=== PATIENT | female | born 1970 | race Caucasian/White ===

== ENCOUNTER 2017-04-13 09:55 | Emergency (ER) | payer SELFPAY ==
[2017-04-13 10:05] VITALS: TEMP 98.1
[2017-04-13 10:31] LABS: % IMMATURE GRANULYOCYTES 0.3 % (0.0-1.1); ABSOLUTE IMMATURE GRANULOCYTES 0.03 10^3/uL (0.00-0.10); ADD DIFF? NO; ADD MORPH? NO; ADD SCAN? NO; ATYPICAL LYMPHOCYTE FLAG 10 (0-99); FRAGMENT RBC FLAG 20 (0-99); HEMATOCRIT 39.4 % (38.0-47.0); LEFT SHIFT FLG 0 (0-99); LIPEMIA HEMOLYSIS FLAG 80 (0-99); MEAN CELL HEMOGLOBIN 27.1 pg (27.9-34.1); MEAN CELL VOLUME 82.1 fL (81.5-99.8); MEAN PLATELET VOLUME 10.7 fL (8.7-11.7); PLATELET CLUMPS FLAG 20 (0-99); PLATELET COUNT 361 10^3/uL (150-400); RED CELL DISTRIBUTION WIDTH 19.5 % (11.5-15.2)
[2017-04-13 10:41] VITALS: BP 106/68; PULSE 69; RESP 18; O2SAT 96
[2017-04-13 10:47] LABS: ANION GAP 15 mEq/L (8-16); CALCIUM 9.5 mg/dL (8.5-10.4); CARBON DIOXIDE 20 mEq/l (22-31); CHLORIDE 109 mEq/L (97-110); CREATININE 0.8 mg/dL (0.6-1.0); GLOMERULAR FILTRATION RATE > 60; GLUCOSE 89 mg/dL (70-100); POTASSIUM 4.5 mEq/L (3.5-5.2); SODIUM 144 mEq/L (134-144)
--- NOTE | 2017-04-13 11:13 | EDPHY ---
H & P Time Seen by Provider: 04/13/17 10:34 HPI/ROS: CHIEF COMPLAINT: Visual symptoms and peripheral numbness HISTORY OF PRESENT ILLNESS: Patient has a long history of migraine headaches. She often will get some visual auras or peripheral neurologic symptoms. She did have a negative head CT and [place] 1 month ago. She arrived from [place] on Tuesday and went for a hike that day and the next day and felt fine. On Tuesday she felt a strong migraine which was right-sided, typical for her associated with visual symptoms like she had today and nausea. She took her [place] migraine medication which includes indomethacin, caffeine and prochlorperazine (from the label on the box which she has with her) and felt better. She had a subjective fever yesterday and then today at 9:00 a.m. for about 45 min she had "waves "in her vision like her migraine aura, difficulty reading her phone, and numbness in both hands the left greater than the right. She also had some tingling in her cheek and her mouth and all lasted about 45 min and now she feels that all of her symptoms are completely gone. REVIEW OF SYSTEMS: Eye: Visual or as above ENT: no sore throat or earache Cardiac: no chest pain or syncope Pulmonary: no cough or SOB Abdomen: no vomiting, diarrhea, abdominal pain Musculoskeletal: no back pain or neck pain Skin: no rash Neuro: HPI. She did not have vertigo or loss of balance or ataxia. No weakness or numbness in arms or legs. Constitutional: no fever : no urinary symptoms A comprehensive 10 point review of systems is otherwise negative aside from elements mentioned in the history of present illness. PAST MEDICAL HISTORY: Migraine headaches and anemia Social history: Lives in [facility] General Appearance: Alert and conversant, cooperative. Eyes: No scleral icterus. Extraocular motion intact. ENT, Mouth: Normal mucous membranes. Normal tympanic membranes. No facial swelling. Respiratory: Normal respiratory effort, breath sounds equal, lungs are clear to auscultation. Cardiovascular: Regular rate and rhythm. No murmurs. Gastrointestinal: Abdomen is soft and non tender. Neurological: Alert and oriented x3. Normally conversant. Face symmetric, normal movement and sensation in all extremities. Normal [id number] and no pronator drift. Forehead wrinkle symmetrically. She has normal sensation to the soft and sharp as well as cold and hot and light touch to both sides of her face and both arms. Patellar reflexes 1+ bilateral, toes downgoing, no clonus. Fluent speech. Ambulatory. Skin: Warm and dry, no rashes. Musculoskeletal: Normal range of motion of the neck. Psychiatric: Not agitated. Emergency Department course/MDM: Patient presents with symptoms this morning which have resolved completely. She is not anemic and her electrolytes are normal. She was worried about high altitude cerebral edema which I think is unlikely given the fact that she is currently sleeping at [facility]. I do not think it is likely she had a stroke, she has normal neurologic examination now. I think the most likely and most reasonable explanation is that she had atypical migraine symptoms which have now resolved. I also considered other diagnoses including but not limited to [employer] infection, Catalan's palsy, peripheral neuropathy, seizure or [employer] mass or bleed, vascular dissection, ischemic stroke, all of which I think are unlikely. Smoking Status: Never smoked Constitutional: Initial Vital Signs Temperature (C) 36.7 C 04/13/17 10:01 Heart Rate 79 04/13/17 10:01 Respiratory Rate 16 04/13/17 10:01 Blood Pressure 119/81 H 04/13/17 10:01 O2 Sat (%) 97 04/13/17 10:01 O2 Delivery Mode Room Air Allergies/Adverse Reactions: No Known Allergies Allergy (Unverified 04/13/17 09:58) Home Medications: Medication Instructions Recorded Indomethacin 04/13/17 Iron 04/13/17 Medical Decision Making - Data Points Laboratory Results: Laboratory Results 04/13/17 10:20 04/13/17 10:20 04/13/17 04/13/17 10:20 10:20 WBC 8.95 10^3/uL 10^3/uL (3.80-9.50) RBC 4.80 10^6/uL 10^6/uL (4.18-5.33) Hgb 13.0 g/dL g/dL (12.6-16.3) Hct 39.4 % % (38.0-47.0) MCV 82.1 fL fL (81.5-99.8) MCH 27.1 pg L pg (27.9-34.1) MCHC 33.0 g/dL g/dL (32.4-36.7) RDW 19.5 % H % (11.5-15.2) Plt Count 361 10^3/uL 10^3/uL (150-400) MPV 10.7 fL fL (8.7-11.7) Neut % (Auto) 72.9 % % (39.3-74.2) Lymph % (Auto) 18.9 % % (15.0-45.0) [place] % (Auto) 6.3 % % (4.5-13.0) Eos % (Auto) 0.6 % % (0.6-7.6) Baso % (Auto) 1.0 % % (0.3-1.7) Nucleat RBC Rel Count 0.0 % % (0.0-0.2) Absolute Neuts (auto) 6.53 10^3/uL H 10^3/uL (1.70-6.50) Absolute Lymphs (auto) 1.69 10^3/uL 10^3/uL (1.00-3.00) Absolute Monos (auto) 0.56 10^3/uL 10^3/uL (0.30-0.80) Absolute Eos (auto) 0.05 10^3/uL 10^3/uL (0.03-0.40) Absolute Basos (auto) 0.09 10^3/uL 10^3/uL (0.02-0.10) Absolute Nucleated RBC 0.00 10^3/uL 10^3/uL (0-0.01) Immature Gran % 0.3 % % (0.0-1.1) Immature Gran # 0.03 10^3/uL 10^3/uL (0.00-0.10) Sodium 144 mEq/L mEq/L (134-144) Potassium 4.5 mEq/L mEq/L (3.5-5.2) Chloride 109 mEq/L mEq/L (97-110) Carbon Dioxide 20 mEq/l L mEq/l (22-31) Anion Gap 15 mEq/L mEq/L (8-16) BUN 14 mg/dL mg/dL (7-23) Creatinine 0.8 mg/dL mg/dL (0.6-1.0) Estimated GFR > 60 Glucose 89 mg/dL mg/dL (70-100) Calcium 9.5 mg/dL mg/dL (8.5-10.4) Departure - Departure Disposition: Home, Routine, Self-Care Clinical Impression: Migraine headache with aura Condition: Good Instructions: Migraine Headache (ED), Paresthesia (ED) Referrals: Mason Cuellar MD [Medical Doctor] - As per Instructions
== END 2017-04-13 11:27 | disposition home or self-care (01) ==
DX: G43.109 Migraine with aura, not intractable, without status migrainosus (principal)